=== PATIENT | male | born 1940 | race Caucasian/White ===

== ENCOUNTER 2016-07-16 10:37 | Outpatient (CLI) | END 2016-07-16 10:38 | disposition home or self-care (01) ==

== ENCOUNTER 2016-08-20 14:10 | Outpatient (CLI) | payer MEDICARE, OTHER | END 2016-08-20 14:11 | disposition home or self-care (01) | DX: I48.91 Unspecified atrial fibrillation (principal) ==

== ENCOUNTER 2016-09-29 10:47 | Outpatient (CLI) | payer MEDICARE, OTHER | END 2016-09-29 10:48 | disposition home or self-care (01) | DX: I48.91 Unspecified atrial fibrillation (principal) ==

== ENCOUNTER 2016-11-17 10:27 | Outpatient (CLI) | payer MEDICARE, OTHER | END 2016-11-17 10:28 | disposition home or self-care (01) | DX: I48.91 Unspecified atrial fibrillation (principal) ==

== ENCOUNTER 2016-11-26 10:00 | Outpatient (CLI) | payer MEDICARE, OTHER | END 2016-11-26 10:01 | disposition home or self-care (01) | DX: I48.91 Unspecified atrial fibrillation (principal) ==

== ENCOUNTER 2016-12-30 10:55 | Outpatient (CLI) | payer MEDICARE, OTHER | END 2016-12-30 10:56 | disposition home or self-care (01) | LOC: LAB.F 10:55 | PROVIDERS: ATTEND Family Medicine | DX: I48.91 Unspecified atrial fibrillation (principal) | CPT/HCPCS: 85610 ==

== ENCOUNTER 2017-01-20 08:00 | Outpatient (CLI) | payer MEDICARE, OTHER | END 2017-01-20 08:01 | disposition home or self-care (01) | LOC: LAB.F 08:00 | PROVIDERS: ATTEND Family Medicine | DX: I48.91 Unspecified atrial fibrillation (principal) | CPT/HCPCS: 85610 ==

== ENCOUNTER 2017-02-23 09:51 | Outpatient (CLI) | payer MEDICARE, OTHER | END 2017-02-23 09:52 | disposition home or self-care (01) | LOC: LAB.F 09:51 | PROVIDERS: ATTEND Family Medicine | DX: I48.91 Unspecified atrial fibrillation (principal) | CPT/HCPCS: 85610 ==

== ENCOUNTER 2017-03-30 11:07 | Outpatient (CLI) | payer MEDICARE, OTHER | END 2017-03-30 11:08 | disposition home or self-care (01) | LOC: LAB.F 11:07 | PROVIDERS: ATTEND Family Medicine | DX: I48.91 Unspecified atrial fibrillation (principal) | CPT/HCPCS: 85610 ==

== ENCOUNTER 2017-04-13 10:08 | Outpatient (CLI) | payer MEDICARE, OTHER | END 2017-04-13 10:09 | disposition home or self-care (01) | LOC: LAB.F 10:08 | PROVIDERS: ATTEND Family Medicine | DX: I48.91 Unspecified atrial fibrillation (principal) | CPT/HCPCS: 85610 ==

== ENCOUNTER 2017-06-22 09:59 | Outpatient (CLI) | payer MEDICARE, OTHER | END 2017-06-22 10:00 | disposition home or self-care (01) | LOC: LAB.F 09:59 | PROVIDERS: ATTEND Family Medicine | DX: I48.91 Unspecified atrial fibrillation (principal) | CPT/HCPCS: 85610 ==

== ENCOUNTER 2017-07-27 10:50 | Outpatient (CLI) | payer MEDICARE, OTHER | END 2017-07-27 10:51 | disposition home or self-care (01) | LOC: LAB.F 10:50 | PROVIDERS: ATTEND Family Medicine | DX: I48.91 Unspecified atrial fibrillation (principal) | CPT/HCPCS: 85610 ==

== ENCOUNTER 2017-08-31 09:40 | Outpatient (CLI) | payer MEDICARE, OTHER | END 2017-08-31 09:41 | disposition home or self-care (01) | LOC: LAB.F 09:40 | PROVIDERS: ATTEND Family Medicine | DX: I48.91 Unspecified atrial fibrillation (principal) | CPT/HCPCS: 85610 ==

== ENCOUNTER 2017-10-05 10:34 | Outpatient (CLI) | payer MEDICARE, OTHER | END 2017-10-05 10:35 | disposition home or self-care (01) | LOC: LAB.F 10:34 | PROVIDERS: ATTEND Family Medicine | DX: I48.91 Unspecified atrial fibrillation (principal) | CPT/HCPCS: 85610 ==

== ENCOUNTER 2017-10-09 11:12 | Outpatient (CLI) | payer MEDICARE, OTHER | END 2017-10-09 11:13 | disposition home or self-care (01) | LOC: DI 11:12 | PROVIDERS: ATTEND Family Medicine | DX: I42.9 Cardiomyopathy, unspecified (principal); I48.91 Unspecified atrial fibrillation; Z95.2 Presence of prosthetic heart valve; I07.1 Rheumatic tricuspid insufficiency | CPT/HCPCS: 93306 ==

== ENCOUNTER 2017-11-09 10:33 | Outpatient (CLI) | payer MEDICARE, OTHER | END 2017-11-09 10:34 | disposition home or self-care (01) | LOC: LAB.F 10:33 | PROVIDERS: ATTEND Family Medicine | DX: I48.91 Unspecified atrial fibrillation (principal) | CPT/HCPCS: 85610 ==

== ENCOUNTER 2017-12-14 10:20 | Outpatient (CLI) | payer MEDICARE, OTHER | END 2017-12-14 10:21 | disposition home or self-care (01) | LOC: LAB.F 10:20 | PROVIDERS: ATTEND Family Medicine | DX: I48.91 Unspecified atrial fibrillation (principal) | CPT/HCPCS: 85610 ==

== ENCOUNTER 2017-12-28 09:55 | Outpatient (CLI) | payer MEDICARE, OTHER | END 2017-12-28 09:56 | disposition home or self-care (01) | LOC: LAB.F 09:55 | PROVIDERS: ATTEND Family Medicine | DX: I48.91 Unspecified atrial fibrillation (principal) | CPT/HCPCS: 85610 ==

== ENCOUNTER 2018-01-31 10:10 | Outpatient (CLI) | payer MEDICARE, OTHER | END 2018-01-31 10:11 | disposition home or self-care (01) | LOC: LAB.F 10:10 | PROVIDERS: ATTEND Family Medicine | DX: I48.91 Unspecified atrial fibrillation (principal) | CPT/HCPCS: 85610 ==

== ENCOUNTER 2018-03-08 09:44 | Outpatient (CLI) | payer MEDICARE, OTHER | END 2018-03-08 09:45 | disposition home or self-care (01) | LOC: LAB.F 09:44 | PROVIDERS: ATTEND Family Medicine | DX: I48.91 Unspecified atrial fibrillation (principal) | CPT/HCPCS: 85610 ==

== ENCOUNTER 2018-04-12 10:20 | Outpatient (CLI) | payer MEDICARE, OTHER | END 2018-04-12 10:21 | disposition home or self-care (01) | LOC: LAB.F 10:20 | PROVIDERS: ATTEND Family Medicine | DX: I48.91 Unspecified atrial fibrillation (principal) | CPT/HCPCS: 85610 ==

== ENCOUNTER 2018-05-24 11:14 | Outpatient (CLI) | payer MEDICARE, OTHER | END 2018-05-24 11:15 | disposition home or self-care (01) | LOC: LAB.F 11:14 | PROVIDERS: ATTEND Family Medicine | DX: I48.91 Unspecified atrial fibrillation (principal) | CPT/HCPCS: 85610 ==

== ENCOUNTER 2018-06-14 10:37 | Outpatient (CLI) | payer MEDICARE, OTHER | END 2018-06-14 10:38 | disposition home or self-care (01) | LOC: LAB.F 10:37 | PROVIDERS: ATTEND Family Medicine | DX: I48.91 Unspecified atrial fibrillation (principal) | CPT/HCPCS: 85610 ==

== ENCOUNTER 2018-06-29 09:58 | Outpatient (CLI) | payer MEDICARE, OTHER | END 2018-06-29 09:59 | disposition home or self-care (01) | LOC: LAB.F 09:58 | PROVIDERS: ATTEND Family Medicine | DX: I48.91 Unspecified atrial fibrillation (principal) | CPT/HCPCS: 85610 ==

== ENCOUNTER 2018-07-15 11:03 | Outpatient (CLI) | payer MEDICARE, OTHER | END 2018-07-15 11:04 | disposition home or self-care (01) | LOC: LAB.F 11:03 | PROVIDERS: ATTEND Family Medicine | DX: I48.91 Unspecified atrial fibrillation (principal) | CPT/HCPCS: 85610 ==

== ENCOUNTER 2018-08-17 11:16 | Outpatient (CLI) | payer MEDICARE, OTHER | END 2018-08-17 11:17 | disposition home or self-care (01) | LOC: LAB.F 11:16 | PROVIDERS: ATTEND Family Medicine | DX: I48.91 Unspecified atrial fibrillation (principal) | CPT/HCPCS: 85610 ==

== ENCOUNTER 2018-09-20 10:05 | Outpatient (CLI) | payer MEDICARE, OTHER | END 2018-09-20 10:06 | disposition home or self-care (01) | LOC: LAB.F 10:05 | PROVIDERS: ATTEND Family Medicine | DX: I48.91 Unspecified atrial fibrillation (principal) | CPT/HCPCS: 85610 ==

== ENCOUNTER 2018-10-25 09:58 | Outpatient (CLI) | payer MEDICARE, OTHER | END 2018-10-25 09:59 | disposition home or self-care (01) | LOC: LAB.F 09:58 | PROVIDERS: ATTEND Family Medicine | DX: I48.91 Unspecified atrial fibrillation (principal) | CPT/HCPCS: 85610 ==

== ENCOUNTER 2018-11-29 09:50 | Outpatient (CLI) | payer MEDICARE, OTHER | END 2018-11-29 09:51 | disposition home or self-care (01) | LOC: LAB.F 09:50 | PROVIDERS: ATTEND Family Medicine | DX: I48.91 Unspecified atrial fibrillation (principal) | CPT/HCPCS: 85610 ==

== ENCOUNTER 2019-01-03 10:33 | Outpatient (CLI) | payer MEDICARE, OTHER | END 2019-01-03 10:34 | disposition home or self-care (01) | LOC: LAB.F 10:33 | PROVIDERS: ATTEND Family Medicine | DX: I48.91 Unspecified atrial fibrillation (principal) | CPT/HCPCS: 85610 ==

== ENCOUNTER 2019-01-31 10:01 | Outpatient (CLI) | payer MEDICARE, OTHER | END 2019-01-31 10:02 | disposition home or self-care (01) | LOC: LAB.S 10:01 | PROVIDERS: ATTEND Family Medicine | DX: I48.91 Unspecified atrial fibrillation (principal) | CPT/HCPCS: 85610 ==

== ENCOUNTER 2019-03-07 09:53 | Outpatient (CLI) | payer MEDICARE, OTHER | END 2019-03-07 09:54 | disposition home or self-care (01) | LOC: LAB.S 09:53 | PROVIDERS: ATTEND Family Medicine | DX: I48.91 Unspecified atrial fibrillation (principal) | CPT/HCPCS: 85610 ==

== ENCOUNTER 2019-04-04 10:46 | Outpatient (CLI) | payer MEDICARE, OTHER | END 2019-04-04 10:47 | disposition home or self-care (01) | LOC: LAB.S 10:46 | PROVIDERS: ATTEND Family Medicine | DX: I48.91 Unspecified atrial fibrillation (principal) | CPT/HCPCS: 85610 ==

== ENCOUNTER 2019-04-14 17:01 | Emergency (ER) | payer MEDICARE, OTHER ==
[2019-04-14] MEDS ORDERED: LIDOCAINE 2%-EPI 1:100000 20 ML MDV SUBQ STA (17:15)
[2019-04-14] MEDS ORDERED: TRANEXAMIC ACID 1,000 MG/10 ML VIAL NAS STA (17:15)
--- NOTE | 2019-04-14 17:17 | ED Physician Documentation ---
PD HPI HEENT - Stated complaint Stated Complaint: MOUTH BLEEDING/POST OP - Chief complaint Chief Complaint: Heent - History obtained from History obtained from: Patient - History of Present Illness Timing - onset: Other (He is 2 days out from some dental extractions and implants. He is chronically anticoagulated and stopped his warfarin 5 days prior to the surgery and was on a Lovenox bridge. He has subsequently restarted his warfarin and is still on Lovenox and is having a lot of bleeding today) Review of Systems Constitutional: reports: Reviewed and negative Ears: reports: Reviewed and negative Nose: reports: Reviewed and negative Throat: reports: Reviewed and negative PD PAST MEDICAL HISTORY - Past Medical History Cardiovascular: Hypertension, High cholesterol : Benign prostate hypertrophy - Past Surgical History Past Surgical History: Yes General: Cholecystectomy Cardiovascular: Valve replacement - Present Medications Home Medications: Ambulatory Orders Medication Instructions Recorded Confirmed Aspirin [Roxana Chewable] 81 mg PO DAILY 04/20/14 04/20/14 Digoxin [Digox] 250 mcg PO DAILY 04/20/14 04/20/14 Finasteride 5 mg PO DAILY 04/20/14 04/20/14 Metoprolol Succinate 100 mg PO BID 04/20/14 04/20/14 Simvastatin [Zocor] 40 mg PO DAILY 04/20/14 04/20/14 Tamsulosin [Flomax] 0.4 mg PO DAILY 04/20/14 04/20/14 Warfarin [Coumadin] 5 mg PO DAILY 04/20/14 04/20/14 - Allergies Allergies/Adverse Reactions: Allergies Allergy/AdvReac Type Severity Reaction Status Date / Time No Known Drug Allergies Allergy Verified 04/14/19 17:04 - Social History Does the pt smoke?: Yes Smoking Status: Current every day smoker Does the pt drink ETOH?: No Does the pt have substance abuse?: No - Immunizations Immunizations are current?: Yes - POLST Patient has POLST: No PD ED PE NORMAL - Vitals Vital signs reviewed: Yes - General General: Alert and oriented X 3 - HEENT HEENT: Other (Fresh clot on the gumline of the right mandible) - Neck Neck: Supple, no meningeal sign, No bony TTP - Neuro Neuro: Alert and oriented X 3, Normal speech - Psych Psych: Normal mood, Normal affect Results - Vitals Vitals: Vital Signs - 24 hr 04/14/19 17:04 Temperature 36.5 C Heart Rate 76 Respiratory 16 Rate Blood Pressure 114/57 L O2 Saturation 97 Oxygen O2 Source Room air - Labs Labs: Laboratory Tests 04/14/19 04/14/19 17:34 17:34 Hgb 15.5 Hct 46.5 PT 13.6 H INR 1.2 PD MEDICAL DECISION MAKING - ED course ED course: 79-year-old gentleman fully anticoagulated with Lovenox on a bridge presents with post implant dental bleeding. Using combination of local injection with lidocaine and epinephrine and topical tranexamic acid the bleeding stopped. Departure - Departure Disposition: 01 Home, Self Care Clinical Impression: Warfarin anticoagulation, Hemorrhagic complications of dental implant placement Condition: Good Record reviewed to determine appropriate education?: Yes Comments: Return for recurring bleeding. Call your dentist on Wednesday. Let him or her know that we stopped the bleeding with a combination of lidocaine with epinephrine and tranexamic acid. Recheck your INR on Wednesday.
[2019-04-14 17:43] LABS: HGB - HEMOGLOBIN 15.5 g/dL (14.0-18.0)
[2019-04-14 17:48] LABS: INR 1.2 (0.8-1.2); PT - PROTHROMBIN TIME 13.6 secs (9.9-12.6)
[2019-04-14 18:26] VITALS: BP 134/78
== END 2019-04-14 18:20 | disposition home or self-care (01) ==
LOC: ED 17:01
DX: K91.840 Postprocedural hemorrhage of a digestive system organ or structure following a digestive system procedure (principal); I10 Essential (primary) hypertension; F17.200 Nicotine dependence, unspecified, uncomplicated; Z79.01 Long term (current) use of anticoagulants
CPT/HCPCS: 36415; 85014; 85018; 85610; 99283

== ENCOUNTER 2019-04-16 14:21 | Emergency (ER) | payer MEDICARE, OTHER ==
[2019-04-16 15:09] LABS: BASOPHILS % (AUTO) 0.3 %; EOSINOPHILS % (AUTO) 0.9 %; HGB - HEMOGLOBIN 15.3 g/dL (14.0-18.0); LYMPHOCYTES # (AUTO) 1.5 10^3/uL (1.5-3.5); LYMPHOCYTES % (AUTO) 22.2 %; MEAN CORPUSCULAR HEMOGLOBIN 31.1 pg (27.0-31.0); MEAN CORPUSCULAR HGB CONC 32.6 g/dL (32.0-36.0); MEAN CORPUSCULAR VOLUME 95.3 fL (80.0-94.0); MEAN PLATELET VOLUME 9.1 fL (7.4-11.4); MONOCYTES # (AUTO) 1.1 10^3/uL (0.0-1.0); MONOCYTES % (AUTO) 15.6 %; NEUTROPHILS # (AUTO) 4.1 10^3/uL (1.5-6.6); NEUTROPHILS % (AUTO) 60.6 %; PLT - PLATELET COUNT 224 10^3/uL (130-450); RED BLOOD COUNT 4.92 10^6/uL (4.70-6.10); RED CELL DISTRIBUTION WIDTH 13.3 % (12.0-15.0); WHITE BLOOD COUNT 6.8 x10^3/uL (4.8-10.8)
[2019-04-16 15:10] LABS: EOSINOPHILS # (AUTO) 0.1 10^3/uL (0.0-0.7)
[2019-04-16 15:15] LABS: INR 1.5 (0.8-1.2); PT - PROTHROMBIN TIME 16.6 secs (9.9-12.6)
[2019-04-16] MEDS ORDERED: TRANEXAMIC ACID 1,000 MG/10 ML VIAL NAS STA (16:00)
--- NOTE | 2019-04-16 16:05 | ED Physician Documentation ---
History of Present Illness - Stated complaint Stated Complaint: MOUTH BLEED/POST OP - Chief complaint Chief Complaint: Heent - History obtained from History obtained from: Patient - History of Present Illness Pain level max: 0 Pain level now: 0 Improved by: nothing Worsened by: nothing - Additonal information Additional information: s/p dental extraction 5 days ago. On warfarin for an artificial heart valve. On lovenox currently as well. States recurrent bleeding today. Seen on wednesday for same. stopped with TXA and lido with epi. Review of Systems Ten Systems: 10 systems reviewed and negative Constitutional: denies: Fever, Chills Respiratory: denies: Cough GI: denies: Vomiting, Diarrhea Musculoskeletal: denies: Neck pain, Back pain Neurologic: denies: Focal weakness, Numbness, Headache PD PAST MEDICAL HISTORY - Past Medical History Cardiovascular: Hypertension, High cholesterol : Benign prostate hypertrophy - Past Surgical History Past Surgical History: Yes General: Cholecystectomy Cardiovascular: Valve replacement - Present Medications Home Medications: Ambulatory Orders Medication Instructions Recorded Confirmed Aspirin [Roxana Chewable] 81 mg PO DAILY 04/20/14 04/20/14 Digoxin [Digox] 250 mcg PO DAILY 04/20/14 04/20/14 Finasteride 5 mg PO DAILY 04/20/14 04/20/14 Metoprolol Succinate 100 mg PO BID 04/20/14 04/20/14 Simvastatin [Zocor] 40 mg PO DAILY 04/20/14 04/20/14 Tamsulosin [Flomax] 0.4 mg PO DAILY 04/20/14 04/20/14 Warfarin [Coumadin] 5 mg PO DAILY 04/20/14 04/20/14 - Allergies Allergies/Adverse Reactions: Allergies Allergy/AdvReac Type Severity Reaction Status Date / Time No Known Drug Allergies Allergy Verified 04/14/19 17:04 - Social History Does the pt smoke?: Yes Smoking Status: Current every day smoker Does the pt drink ETOH?: No Does the pt have substance abuse?: No - Immunizations Immunizations are current?: Yes - POLST Patient has POLST: No PD ED PE NORMAL - Vitals Vital signs reviewed: Yes - General General: Alert and oriented X 3, No acute distress - HEENT HEENT: Moist mucous membranes, Other (bleeding from the R lower gums.) - Neck Neck: Supple, no meningeal sign - Cardiac Cardiac: RRR - Respiratory Respiratory: No respiratory distress, Clear bilaterally - Derm Derm: Warm and dry - Neuro Neuro: Alert and oriented X 3 Results - Vitals Vitals: Vital Signs - 24 hr 04/16/19 04/16/19 14:35 17:23 Temperature 36.6 C Heart Rate 70 80 Respiratory 16 18 Rate Blood Pressure 121/56 L 110/63 O2 Saturation 97 96 Oxygen O2 Source Room air - Labs Labs: Laboratory Tests 04/16/19 04/16/19 15:00 15:00 WBC 6.8 RBC 4.92 Hgb 15.3 Hct 46.9 MCV 95.3 H MCH 31.1 H MCHC 32.6 RDW 13.3 Plt Count 224 MPV 9.1 Neut # (Auto) 4.1 Lymph # (Auto) 1.5 Bond # (Auto) 1.1 H Eos # (Auto) 0.1 Baso # (Auto) 0.0 Absolute Nucleated RBC 0.00 Nucleated RBC % 0.0 PT 16.6 H INR 1.5 H PD MEDICAL DECISION MAKING - ED course Complexity details: reviewed old records, reviewed results, re-evaluated patient, considered differential, d/w patient, d/w family ED course: Bleeding resolved with topical tranexamic acid. No significant lab abnormalities. He will follow-up with his dentist tomorrow. No further bleeding here. Patient and family counseled regarding signs and symptoms for which I believe and urgent re-evaluation would be necessary. Patient with good understanding of and agreement to plan and is comfortable going home at this time This document was made in part using voice recognition software. While efforts are made to proofread this document, sound alike and grammatical errors may occur. Departure - Departure Disposition: 01 Home, Self Care Clinical Impression: Hemorrhagic complications of dental implant placement, Warfarin anticoagulation Condition: Good Instructions: ED Wound Check Post Op Bleeding Follow-Up: Cornelio Hector MD [Primary Care Provider] - Estevan Hernández DDS [Physician No Access] - Tomorrow Comments: Follow up with your dentist tomorrow. Return if you worsen. Discharge Date/Time: 04/16/19 17:26
[2019-04-16 17:24] VITALS: BP 110/63
== END 2019-04-16 17:26 | disposition home or self-care (01) ==
LOC: ED 14:21
DX: K91.840 Postprocedural hemorrhage of a digestive system organ or structure following a digestive system procedure (principal); I10 Essential (primary) hypertension; F17.200 Nicotine dependence, unspecified, uncomplicated
CPT/HCPCS: 36415; 85025; 85610; 99283; 99284

== ENCOUNTER 2019-04-18 13:32 | Outpatient (CLI) | payer MEDICARE, OTHER | END 2019-04-18 13:33 | disposition home or self-care (01) | LOC: LAB.S 13:32 | PROVIDERS: ATTEND Family Medicine | DX: I48.91 Unspecified atrial fibrillation (principal) | CPT/HCPCS: 85610 ==

== ENCOUNTER 2019-04-25 08:00 | Outpatient (CLI) | payer MEDICARE, OTHER | END 2019-04-25 23:59 | disposition home or self-care (01) | LOC: LAB.WCP 08:00 | PROVIDERS: ATTEND Physician Assistant Medical | DX: I48.91 Unspecified atrial fibrillation (principal); Z95.2 Presence of prosthetic heart valve; Z79.01 Long term (current) use of anticoagulants ==

== ENCOUNTER 2019-05-02 08:00 | Outpatient (CLI) | payer MEDICARE, OTHER | END 2019-05-02 23:59 | disposition home or self-care (01) | LOC: LAB.WCP 08:00 | PROVIDERS: ATTEND Family Medicine | DX: I48.91 Unspecified atrial fibrillation (principal); Z95.2 Presence of prosthetic heart valve; Z79.01 Long term (current) use of anticoagulants ==

== ENCOUNTER 2019-05-16 10:22 | Outpatient (CLI) | payer MEDICARE, OTHER | END 2019-05-16 10:23 | disposition home or self-care (01) | LOC: LAB.S 10:22 | PROVIDERS: ATTEND Family Medicine | DX: I48.91 Unspecified atrial fibrillation (principal) | CPT/HCPCS: 85610 ==

== ENCOUNTER 2019-06-20 11:20 | Outpatient (CLI) | payer MEDICARE, OTHER | END 2019-06-20 11:21 | disposition home or self-care (01) | LOC: LAB.S 11:20 | PROVIDERS: ATTEND Family Medicine | DX: I48.91 Unspecified atrial fibrillation (principal) | CPT/HCPCS: 85610 ==

== ENCOUNTER 2019-07-18 08:00 | Outpatient (CLI) | payer MEDICARE, OTHER | END 2019-07-18 23:59 | disposition home or self-care (01) | LOC: LAB.S 08:00 | PROVIDERS: ATTEND Family Medicine | DX: I48.91 Unspecified atrial fibrillation (principal) | CPT/HCPCS: 85610 ==

== ENCOUNTER 2019-07-27 08:00 | Outpatient (CLI) | payer MEDICARE, OTHER | END 2019-07-27 23:59 | disposition home or self-care (01) | LOC: LAB.WCP 08:00 | PROVIDERS: ATTEND Family Medicine | DX: I48.91 Unspecified atrial fibrillation (principal); Z95.2 Presence of prosthetic heart valve; Z79.01 Long term (current) use of anticoagulants ==

== ENCOUNTER 2019-08-04 10:46 | Outpatient (CLI) | payer MEDICARE, OTHER | END 2019-08-04 10:47 | disposition home or self-care (01) | LOC: LAB.S 10:46 | PROVIDERS: ATTEND Family Medicine | DX: I48.91 Unspecified atrial fibrillation (principal) | CPT/HCPCS: 85610 ==

== ENCOUNTER 2019-08-18 08:00 | Outpatient (CLI) | payer MEDICARE, OTHER | END 2019-08-18 23:59 | disposition home or self-care (01) | LOC: LAB.WCP 08:00 | PROVIDERS: ATTEND Family Medicine | DX: Z95.2 Presence of prosthetic heart valve (principal); Z79.01 Long term (current) use of anticoagulants ==

== ENCOUNTER 2019-08-18 08:00 | Outpatient (CLI) | payer MEDICARE, OTHER ==
[2019-08-18 19:05] LABS: BASOPHILS % (AUTO) 0.6 %; EOSINOPHILS # (AUTO) 0.1 10^3/uL (0.0-0.7); EOSINOPHILS % (AUTO) 1.3 %; HGB - HEMOGLOBIN 15.3 g/dL (14.0-18.0); LYMPHOCYTES # (AUTO) 1.6 10^3/uL (1.5-3.5); LYMPHOCYTES % (AUTO) 23.3 %; MEAN CORPUSCULAR HEMOGLOBIN 29.8 pg (27.0-31.0); MEAN CORPUSCULAR VOLUME 96.1 fL (80.0-94.0); MEAN PLATELET VOLUME 10.2 fL (7.4-11.4); MONOCYTES # (AUTO) 1.1 10^3/uL (0.0-1.0); MONOCYTES % (AUTO) 15.4 %; NEUTROPHILS # (AUTO) 4.1 10^3/uL (1.5-6.6); PLT - PLATELET COUNT 196 10^3/uL (130-450); RED BLOOD COUNT 5.14 10^6/uL (4.70-6.10); RED CELL DISTRIBUTION WIDTH 13.6 % (12.0-15.0)
[2019-08-18 19:32] LABS: ALBUMIN 4.3 g/dL (3.2-5.5); ALBUMIN/GLOBULIN RATIO 1.5 (1.0-2.2); ALKALINE PHOSPHATASE 32 IU/L (42-121); ALT ALANINE AMINOTRANSFERASE 17 IU/L (10-60); AST ASPARTATE AMINOTRANSFERASE 27 IU/L (10-42); BUN - BLOOD UREA NITROGEN 13 mg/dL (6-20); CALCIUM 8.7 mg/dL (8.5-10.3); CARBON DIOXIDE - CO2 27 mmol/L (21-32); CHLORIDE 104 mmol/L (101-111); CREATININE 0.7 mg/dL (0.6-1.2); DIGOXIN 0.3 ng/mL; GFR - MDRD 109 (>89); GLUCOSE 85 mg/dL (70-100); SODIUM 140 mmol/L (135-145); TOTAL PROTEIN 7.2 g/dL (6.7-8.2)
== END 2019-08-18 23:59 | disposition home or self-care (01) ==
LOC: LAB.WCP 08:00
PROVIDERS: ATTEND Family Medicine
DX: I48.91 Unspecified atrial fibrillation (principal); I42.9 Cardiomyopathy, unspecified; E78.5 Hyperlipidemia, unspecified; J84.9 Interstitial pulmonary disease, unspecified; Z95.2 Presence of prosthetic heart valve; Z79.01 Long term (current) use of anticoagulants
CPT/HCPCS: 36415; 80048; 80053; 80162; 84443; 85025

== ENCOUNTER 2019-09-20 10:05 | Outpatient (CLI) | payer MEDICARE, OTHER | END 2019-09-20 10:06 | disposition home or self-care (01) | LOC: LAB.S 10:05 | PROVIDERS: ATTEND Family Medicine | DX: I48.91 Unspecified atrial fibrillation (principal) | CPT/HCPCS: 85610 ==

== ENCOUNTER 2019-10-31 08:00 | Outpatient (CLI) | payer MEDICARE, OTHER | END 2019-10-31 23:59 | disposition home or self-care (01) | LOC: LAB.WCP 08:00 | PROVIDERS: ATTEND Family Medicine | DX: I48.91 Unspecified atrial fibrillation (principal); Z79.01 Long term (current) use of anticoagulants; Z95.2 Presence of prosthetic heart valve ==

== ENCOUNTER 2019-11-28 08:00 | Outpatient (CLI) | payer MEDICARE, OTHER | END 2019-11-28 23:59 | disposition home or self-care (01) | LOC: LAB.WCP 08:00 | PROVIDERS: ATTEND Family Medicine | DX: I48.91 Unspecified atrial fibrillation (principal); Z95.2 Presence of prosthetic heart valve; Z79.01 Long term (current) use of anticoagulants ==

== ENCOUNTER 2019-12-26 08:00 | Outpatient (CLI) | payer MEDICARE, OTHER | END 2019-12-26 23:59 | disposition home or self-care (01) | LOC: LAB.WCP 08:00 | PROVIDERS: ATTEND Family Medicine | DX: I34.9 Nonrheumatic mitral valve disorder, unspecified (principal); Z79.01 Long term (current) use of anticoagulants; I48.91 Unspecified atrial fibrillation ==

== ENCOUNTER 2020-01-30 13:29 | Outpatient (CLI) | payer MEDICARE, OTHER | END 2020-01-30 13:30 | disposition home or self-care (01) | LOC: LAB.S 13:29 | PROVIDERS: ATTEND Family Medicine | DX: I48.91 Unspecified atrial fibrillation (principal) | CPT/HCPCS: 85610 ==

== ENCOUNTER 2020-02-20 10:37 | Outpatient (CLI) | payer MEDICARE, OTHER | END 2020-02-20 10:38 | disposition home or self-care (01) | LOC: LAB.S 10:37 | PROVIDERS: ATTEND Family Medicine | DX: I48.91 Unspecified atrial fibrillation (principal) | CPT/HCPCS: 85610 ==

== ENCOUNTER 2020-04-03 09:42 | Outpatient (CLI) | payer MEDICARE, OTHER | END 2020-04-03 09:43 | disposition home or self-care (01) | LOC: LAB.S 09:42 | PROVIDERS: ATTEND Family Medicine | DX: I48.91 Unspecified atrial fibrillation (principal) | CPT/HCPCS: 85610 ==

== ENCOUNTER 2020-04-17 11:02 | Outpatient (CLI) | payer MEDICARE, OTHER | END 2020-04-17 11:03 | disposition home or self-care (01) | LOC: LAB.S 11:02 | PROVIDERS: ATTEND Family Medicine | DX: I48.91 Unspecified atrial fibrillation (principal) | CPT/HCPCS: 85610 ==

== ENCOUNTER 2020-04-26 08:00 | Outpatient (CLI) | payer MEDICARE, OTHER ==
[2020-04-26 11:22] LABS: BASOPHILS % (AUTO) 0.5 %; EOSINOPHILS # (AUTO) 0.1 10^3/uL (0.0-0.7); EOSINOPHILS % (AUTO) 1.6 %; HGB - HEMOGLOBIN 15.5 g/dL (14.0-18.0); LYMPHOCYTES # (AUTO) 1.8 10^3/uL (1.5-3.5); LYMPHOCYTES % (AUTO) 24.1 %; MEAN CORPUSCULAR HEMOGLOBIN 31.7 pg (27.0-31.0); MEAN CORPUSCULAR VOLUME 99.2 fL (80.0-94.0); MEAN PLATELET VOLUME 9.9 fL (7.4-11.4); MONOCYTES # (AUTO) 1.1 10^3/uL (0.0-1.0); NEUTROPHILS # (AUTO) 4.5 10^3/uL (1.5-6.6); NEUTROPHILS % (AUTO) 59.3 %; PLT - PLATELET COUNT 201 10^3/uL (130-450); RED BLOOD COUNT 4.89 10^6/uL (4.70-6.10); RED CELL DISTRIBUTION WIDTH 13.4 % (12.0-15.0); WHITE BLOOD COUNT 7.6 x10^3/uL (4.8-10.8)
[2020-04-26 12:15] LABS: ALBUMIN 4.3 g/dL (3.2-5.5); ALBUMIN/GLOBULIN RATIO 1.5 (1.0-2.2); ALKALINE PHOSPHATASE 34 IU/L (42-121); ALT ALANINE AMINOTRANSFERASE 21 IU/L (10-60); AST ASPARTATE AMINOTRANSFERASE 29 IU/L (10-42); BILIRUBIN,TOTAL 1.2 mg/dL (0.2-1.0); BUN - BLOOD UREA NITROGEN 13 mg/dL (6-20); CALCIUM 9.6 mg/dL (8.5-10.3); CARBON DIOXIDE - CO2 30 mmol/L (21-32); CHLORIDE 101 mmol/L (101-111); CHOL/HDL RATIO 2.8 (<5.0); CHOLESTEROL 120 mg/dL; CREATININE 0.7 mg/dL (0.6-1.2); GLUCOSE 105 mg/dL (70-100); HDL CHOLESTEROL 43 mg/dL; LDL CHOLESTEROL,CALCULATED 53 mg/dL; LDL/HDL RATIO 1.2 (<3.6); SODIUM 141 mmol/L (135-145); TOTAL PROTEIN 7.2 g/dL (6.7-8.2); VLDL CHOLESTEROL 24 mg/dL
== END 2020-04-26 08:01 | disposition home or self-care (01) ==
LOC: LAB.WCP 08:00
PROVIDERS: ATTEND Family Medicine
DX: E78.5 Hyperlipidemia, unspecified (principal); I42.9 Cardiomyopathy, unspecified; I34.9 Nonrheumatic mitral valve disorder, unspecified; I48.91 Unspecified atrial fibrillation
CPT/HCPCS: 36415; 80053; 80061; 83721; 84443; 85025

== ENCOUNTER 2020-05-08 09:26 | Outpatient (CLI) | payer MEDICARE, OTHER | END 2020-05-08 09:27 | disposition home or self-care (01) | LOC: LAB.S 09:26 | PROVIDERS: ATTEND Family Medicine | DX: I48.91 Unspecified atrial fibrillation (principal) | CPT/HCPCS: 85610 ==

== ENCOUNTER 2020-05-10 08:00 | Outpatient (CLI) | payer MEDICARE, OTHER | END 2020-05-10 23:59 | disposition home or self-care (01) | LOC: LAB.WCP 08:00 | PROVIDERS: ATTEND Family Medicine | DX: Z79.01 Long term (current) use of anticoagulants (principal) ==

== ENCOUNTER 2020-06-12 09:55 | Outpatient (CLI) | payer MEDICARE, OTHER | END 2020-06-12 09:56 | disposition home or self-care (01) | LOC: LAB.S 09:55 | PROVIDERS: ATTEND Family Medicine | DX: Z79.01 Long term (current) use of anticoagulants (principal) | CPT/HCPCS: 85610 ==

== ENCOUNTER 2020-06-24 10:51 | Outpatient (CLI) | payer MEDICARE, OTHER | END 2020-06-24 10:52 | disposition home or self-care (01) | LOC: LAB.S 10:51 | PROVIDERS: ATTEND Family Medicine | DX: Z79.01 Long term (current) use of anticoagulants (principal) | CPT/HCPCS: 85610 ==

== ENCOUNTER 2020-07-08 10:52 | Outpatient (CLI) | payer MEDICARE, OTHER | END 2020-07-08 10:53 | disposition home or self-care (01) | LOC: LAB.S 10:52 | PROVIDERS: ATTEND Family Medicine | DX: Z79.01 Long term (current) use of anticoagulants (principal) | CPT/HCPCS: 85610 ==

== ENCOUNTER 2020-08-06 08:00 | Outpatient (CLI) | payer MEDICARE, OTHER | END 2020-08-06 23:59 | disposition home or self-care (01) | LOC: LAB.WCP 08:00 | PROVIDERS: ATTEND Internal Medicine | DX: Z79.01 Long term (current) use of anticoagulants (principal) ==

== ENCOUNTER 2020-08-23 09:05 | Outpatient (CLI) | payer MEDICARE, OTHER | END 2020-08-23 09:06 | disposition home or self-care (01) | LOC: DI 09:05 | PROVIDERS: ATTEND Family Medicine | DX: I35.1 Nonrheumatic aortic (valve) insufficiency (principal); I48.91 Unspecified atrial fibrillation; I87.8 Other specified disorders of veins; I07.1 Rheumatic tricuspid insufficiency | CPT/HCPCS: 93306 ==

== ENCOUNTER 2020-08-27 09:48 | Outpatient (CLI) | payer MEDICARE, OTHER | END 2020-08-27 09:49 | disposition home or self-care (01) | LOC: LAB.S 09:48 | PROVIDERS: ATTEND Family Medicine | DX: Z79.01 Long term (current) use of anticoagulants (principal) | CPT/HCPCS: 85610 ==

== ENCOUNTER 2020-10-01 10:27 | Outpatient (CLI) | payer MEDICARE, OTHER | END 2020-10-01 10:28 | disposition home or self-care (01) | LOC: LAB.S 10:27 | PROVIDERS: ATTEND Family Medicine | DX: Z79.01 Long term (current) use of anticoagulants (principal) | CPT/HCPCS: 85610 ==

== ENCOUNTER 2020-10-29 09:47 | Outpatient (CLI) | payer MEDICARE, OTHER | END 2020-10-29 09:48 | disposition home or self-care (01) | LOC: LAB.S 09:47 | PROVIDERS: ATTEND Family Medicine | DX: Z79.01 Long term (current) use of anticoagulants (principal) | CPT/HCPCS: 85610 ==

== ENCOUNTER 2020-11-28 10:39 | Outpatient (CLI) | payer MEDICARE, OTHER | END 2020-11-28 10:40 | disposition home or self-care (01) | LOC: LAB.S 10:39 | PROVIDERS: ATTEND Family Medicine | DX: Z79.01 Long term (current) use of anticoagulants (principal) | CPT/HCPCS: 36416; 85610 ==

== ENCOUNTER 2021-01-07 10:43 | Outpatient (CLI) | payer MEDICARE, OTHER | END 2021-01-07 10:44 | disposition home or self-care (01) | LOC: LAB.S 10:43 | PROVIDERS: ATTEND Family Medicine | DX: Z79.01 Long term (current) use of anticoagulants (principal) | CPT/HCPCS: 36416; 85610 ==

== ENCOUNTER 2021-02-04 09:50 | Outpatient (CLI) | payer MEDICARE, OTHER | END 2021-02-04 09:51 | disposition home or self-care (01) | LOC: LAB.S 09:50 | PROVIDERS: ATTEND Family Medicine | DX: Z79.01 Long term (current) use of anticoagulants (principal) | CPT/HCPCS: 36416; 85610 ==

== ENCOUNTER 2021-02-18 08:00 | Outpatient (CLI) | payer MEDICARE, OTHER ==
[2021-02-18 11:31] LABS: INR 2.6 (0.8-1.2); PT - PROTHROMBIN TIME 27.7 secs (9.9-12.6)
[2021-02-18 12:12] LABS: BASOPHILS % (AUTO) 0.6 %; EOSINOPHILS # (AUTO) 0.1 10^3/uL (0.0-0.7); EOSINOPHILS % (AUTO) 2.1 %; HCT - HEMATOCRIT 47.7 % (42.0-52.0); HGB - HEMOGLOBIN 15.5 g/dL (14.0-18.0); LYMPHOCYTES # (AUTO) 1.4 10^3/uL (1.5-3.5); LYMPHOCYTES % (AUTO) 22.2 %; MEAN CORPUSCULAR HEMOGLOBIN 31.7 pg (27.0-31.0); MEAN CORPUSCULAR HGB CONC 32.5 g/dL (32.0-36.0); MEAN CORPUSCULAR VOLUME 97.5 fL (80.0-94.0); MEAN PLATELET VOLUME 9.8 fL (7.4-11.4); MONOCYTES % (AUTO) 16.4 %; NEUTROPHILS # (AUTO) 3.6 10^3/uL (1.5-6.6); NEUTROPHILS % (AUTO) 58.1 %; PLT - PLATELET COUNT 210 10^3/uL (130-450); RED BLOOD COUNT 4.89 10^6/uL (4.70-6.10); RED CELL DISTRIBUTION WIDTH 13.7 % (12.0-15.0); WHITE BLOOD COUNT 6.2 x10^3/uL (4.8-10.8)
[2021-02-18 12:46] LABS: ALBUMIN 4.4 g/dL (3.2-5.5); ALBUMIN/GLOBULIN RATIO 1.5 (1.0-2.2); ALKALINE PHOSPHATASE 35 IU/L (42-121); ALT ALANINE AMINOTRANSFERASE 20 IU/L (10-60); AST ASPARTATE AMINOTRANSFERASE 27 IU/L (10-42); BUN - BLOOD UREA NITROGEN 13 mg/dL (6-20); CALCIUM 9.3 mg/dL (8.5-10.3); CARBON DIOXIDE - CO2 28 mmol/L (21-32); CHLORIDE 103 mmol/L (101-111); CHOL/HDL RATIO 2.9 (<5.0); CHOLESTEROL 134 mg/dL; CREATININE 0.7 mg/dL (0.6-1.2); DIGOXIN 0.4 ng/mL; GFR - MDRD 108 (>89); GLUCOSE 101 mg/dL (70-100); HDL CHOLESTEROL 47 mg/dL; LDL CHOLESTEROL,CALCULATED 69 mg/dL; LDL/HDL RATIO 1.5 (<3.6); POTASSIUM 4.3 mmol/L (3.5-5.0); SODIUM 139 mmol/L (135-145); TOTAL PROTEIN 7.4 g/dL (6.7-8.2); TRIGLYCERIDES 90 mg/dL; VLDL CHOLESTEROL 18 mg/dL
[2021-02-18 12:51] LABS: THYROID STIMULATING HORMONE 1.52 uIU/mL (0.34-5.60)
== END 2021-02-18 23:59 | disposition home or self-care (01) ==
LOC: LAB.WCP 08:00
PROVIDERS: ATTEND Internal Medicine
DX: I42.9 Cardiomyopathy, unspecified (principal); Z79.899 Other long term (current) drug therapy; I34.9 Nonrheumatic mitral valve disorder, unspecified; I48.91 Unspecified atrial fibrillation; Z95.2 Presence of prosthetic heart valve; Z79.01 Long term (current) use of anticoagulants; E78.5 Hyperlipidemia, unspecified; E78.1 Pure hyperglyceridemia; N40.0 Benign prostatic hyperplasia without lower urinary tract symptoms
CPT/HCPCS: 36415; 80053; 80061; 80162; 83721; 84153; 84443; 85025; 85610

== ENCOUNTER 2021-03-25 10:49 | Outpatient (CLI) | payer MEDICARE, OTHER | END 2021-03-25 10:50 | disposition home or self-care (01) | LOC: LAB.S 10:49 | PROVIDERS: ATTEND Family Medicine | DX: Z79.01 Long term (current) use of anticoagulants (principal) | CPT/HCPCS: 36416; 85610 ==

== ENCOUNTER 2021-05-01 10:02 | Outpatient (CLI) | payer MEDICARE, OTHER | END 2021-05-01 10:03 | disposition home or self-care (01) | LOC: LAB.S 10:02 | PROVIDERS: ATTEND Family Medicine | DX: Z79.01 Long term (current) use of anticoagulants (principal) | CPT/HCPCS: 36416; 85610 ==

== ENCOUNTER 2021-05-29 09:40 | Outpatient (CLI) | payer MEDICARE, OTHER | END 2021-05-29 09:41 | disposition home or self-care (01) | LOC: LAB.S 09:40 | PROVIDERS: ATTEND Family Medicine | DX: Z79.01 Long term (current) use of anticoagulants (principal) | CPT/HCPCS: 36416; 85610 ==

== ENCOUNTER 2021-06-22 09:46 | Emergency (ER) | payer MEDICARE, OTHER ==
--- NOTE | 2021-06-22 10:23 | XRAY Report ---
PROCEDURE: Ankle 3 View RT INDICATIONS: Trauma TECHNIQUE: 3 views of the ankle were acquired. COMPARISON: None FINDINGS: Bones: No fractures or dislocations. Ankle mortise is normally aligned. No suspicious bony lesions . Soft tissues: No tibiotalar joint effusion. Achilles tendon appears normal. IMPRESSION: No acute fracture. No osseous lesion. If symptoms and/or clinical suspicion for patholog y continue, further assessment with repeat plain films, or advanced imaging (e.g., CT, MRI, or bone s can) is recommended for further assessment. Reviewed by: Zahida Johnston MD on 06/22/2021 9:21 AM [facility] Approved by: Zahida Johnston MD on 06/22/2021 9:21 AM [facility] Station ID: [id number]
--- NOTE | 2021-06-22 10:23 | XRAY Report ---
PROCEDURE: Foot 3 View RT INDICATIONS: Trauma TECHNIQUE: 3 views of the foot were acquired. COMPARISON: None FINDINGS: Bones: No fractures or dislocations. No suspicious bony lesions. Soft tissues: No tibiotalar joint effusion. Achilles tendon appears normal. IMPRESSION: No acute fracture. No osseous lesion. If symptoms and/or clinical suspicion for pathology continue, f urther assessment with repeat plain films, or advanced imaging (e.g., CT, MRI, or bone scan) is recom mended for further assessment. Reviewed by: Zahida Johnston MD on 06/22/2021 9:22 AM [facility] Approved by: Zahida Johnston MD on 06/22/2021 9:22 AM [facility] Station ID: [id number]
--- NOTE | 2021-06-22 11:06 | ED Physician Documentation ---
PD HPI LOWER EXT INJURY - Stated complaint Stated Complaint: R FOOT SWOLLEN - Chief complaint Chief Complaint: Ext Problem - History obtained from History obtained from: Patient - History of Present Illness PD HPI LOW EXT INJURY LOCATION: Right, Foot Type of injury: Blunt / blow (he states he struck foot on furniture when walking at home last night, and it has swelled more into this morning and is painful.) Where injury occurred: Home Timing - onset: Last night Worsened by: Moving, Palpating Associated symptoms: Swelling, Discolored. No: Weakness, Numbness Contributing factors: Anticoagulated Review of Systems Skin: denies: Abrasion (s), Laceration (s) Neurologic: denies: Focal weakness, Numbness PD PAST MEDICAL HISTORY - Past Medical History Cardiovascular: Hypertension, High cholesterol : Benign prostate hypertrophy - Past Surgical History Past Surgical History: Yes General: Cholecystectomy Cardiovascular: Valve replacement - Present Medications Home Medications: Ambulatory Orders Medication Instructions Recorded Confirmed Aspirin [Roxana Chewable] 81 mg PO DAILY 04/20/14 04/20/14 Digoxin [Digox] 250 mcg PO DAILY 04/20/14 04/20/14 Finasteride 5 mg PO DAILY 04/20/14 04/20/14 Metoprolol Succinate 100 mg PO BID 04/20/14 04/20/14 Simvastatin [Zocor] 40 mg PO DAILY 04/20/14 04/20/14 Tamsulosin [Flomax] 0.4 mg PO DAILY 04/20/14 04/20/14 Warfarin [Coumadin] 5 mg PO DAILY 04/20/14 04/20/14 - Allergies Allergies/Adverse Reactions: Allergies Allergy/AdvReac Type Severity Reaction Status Date / Time No Known Drug Allergies Allergy Verified 04/14/19 17:04 - Social History Does the pt smoke?: Yes Smoking Status: Current every day smoker Does the pt drink ETOH?: No Does the pt have substance abuse?: No - Immunizations Immunizations are current?: Yes - POLST Patient has POLST: No PD ED PE NORMAL - Vitals Vital signs reviewed: Yes - General General: Alert and oriented X 3, No acute distress, Well developed/nourished - Derm Derm: Normal color, Warm and dry - Extremities Extremities: Other (dorsolateral proximal right foot with swelling and bruising color and tenseness to palpation c/w hematoma. Not impinging neurovascular. ) - Neuro Neuro: No motor deficit, No sensory deficit Results - Vitals Vitals: Oxygen O2 Source Room air - Labs Labs: Laboratory Tests 06/22/21 11:33 INR (Fingerstick) 3.2 H - Rads (name of study) right foot Radiology: Prelim report reviewed (no fractures), See rad report PD MEDICAL DECISION MAKING - ED course Complexity details: reviewed results (no fractures. ), considered differential (contusion with tense hematoma from last night. Normal sensation and cap refill. ), d/w patient Departure - Departure Disposition: 01 Home, Self Care Clinical Impression: Hematoma of right foot Foot contusion Qualifiers: Encounter type: initial encounter Laterality: right Qualified Code(s): S90.31XA - Contusion of right foot, initial encounter Condition: Stable Record reviewed to determine appropriate education?: Yes Instructions: ED Hematoma Follow-Up: Manny Mota MD [Primary Care Provider] - Comments: There are no fractures on x-ray. Elevate Kan wrap in ice to the foot periodically through the day to help reduce swelling. Crutches as needed for partial to no weightbearing for comfort. Tylenol 500 to 650 mg 3-4 times a day for the next several days for pain. I would anticipate the pressure of this to decrease over the next several days though the bruising itself will let likely take a week or 2. Recheck if the tightness and pain have not decreased over the next 3 to 5 days. Discharge Date/Time: 06/22/21 11:59
[2021-06-22] MEDS ORDERED: ACETAMINOPHEN 325 MG TABLET PO STA (11:16)
[2021-06-22 11:26] VITALS: BP 147/65
== END 2021-06-22 11:59 | disposition home or self-care (01) ==
LOC: ED 09:46
DX: S90.31XA Contusion of right foot, initial encounter (principal); W22.03XA Walked into furniture, initial encounter; Y92.009 Unspecified place in unspecified non-institutional (private) residence as the place of occurrence of the external cause; I10 Essential (primary) hypertension; Z79.01 Long term (current) use of anticoagulants; Z95.2 Presence of prosthetic heart valve; Z79.82 Long term (current) use of aspirin; F17.200 Nicotine dependence, unspecified, uncomplicated
CPT/HCPCS: 36416; 73610; 73630; 85610; 99282; 99284; A9270

== ENCOUNTER 2021-06-25 08:00 | Outpatient (CLI) | payer MEDICARE, OTHER | END 2021-06-25 23:59 | disposition home or self-care (01) | LOC: LAB.S 08:00 | PROVIDERS: ATTEND Emergency Medicine | DX: I48.21 Permanent atrial fibrillation (principal) | CPT/HCPCS: 36416; 85610 ==

== ENCOUNTER 2021-07-16 10:23 | Outpatient (CLI) | payer MEDICARE, OTHER ==
--- NOTE | 2021-07-16 13:42 | XRAY Report ---
PROCEDURE: Foot 3 View RT INDICATIONS: CONTUSION OF RIGHT FOOT, INITIAL ENCOUNTER TECHNIQUE: 3 views of the foot were acquired. COMPARISON: 06/22/2021 FINDINGS: Bones: No fractures identified. No dislocations. No osseous erosion or periosteal reaction. No suspi cious bony lesions. Soft tissues: No tibiotalar joint effusion. Achilles tendon appears normal. There is heterogeneity of the dorsal and lateral soft tissues. IMPRESSION: No acute osseous abnormality identified. If clinically indicated MRI or CT or three-phase bone scan could be considered for further evaluation . Reviewed by: Bucky Leon MD on 07/16/2021 1:41 PM PST Approved by: Bucky Leon MD on 07/16/2021 1:41 PM PST Station ID: [id number]
== END 2021-07-16 10:24 | disposition home or self-care (01) ==
LOC: DI 10:23
PROVIDERS: ATTEND Nurse Practitioner
DX: S90.31XA Contusion of right foot, initial encounter (principal); I73.9 Peripheral vascular disease, unspecified

== ENCOUNTER 2021-07-25 14:45 | Outpatient (CLI) | payer MEDICARE, OTHER ==
--- NOTE | 2021-07-25 19:15 | Ultrasound Report ---
PROCEDURE: Duplex Lwr Ext Arterial Bilat INDICATIONS: CONTUSION RIGHT FOOT TECHNIQUE: Color and pulse Doppler interrogation was performed of both lower extremity arterial systems, with im age documentation. COMPARISON: None FINDINGS: Right lower extremity: Common femoral artery: 147 cm/sec, with triphasic flow. Deep femoral artery: 83 cm/sec, with triphasic flow. Proximal superficial femoral artery: 115 cm/sec, with triphasic flow. Mid superficial femoral artery: 126 cm/sec, with triphasic flow. Distal superficial femoral artery: 96 cm/sec, with triphasic flow. Popliteal artery: 91 cm/sec, with triphasic flow. Posterior tibial artery: 117 cm/sec, with triphasic flow. Anterior tibial artery/dorsalis pedis: 134/120 cm/sec, with triphasic/triphasic flow. Stinson-scale imaging description: Minimal scattered plaque. Left lower extremity: Common femoral artery: 166 cm/sec, with triphasic flow. Deep femoral artery: 88 cm/sec, with triphasic flow. Proximal superficial femoral artery: 144 cm/sec, with triphasic flow. Mid superficial femoral artery: 90 cm/sec, with triphasic flow. Distal superficial femoral artery: 112 cm/sec, with triphasic flow. Popliteal artery: 93 cm/sec, with triphasic flow. Posterior tibial artery: 108 cm/sec, with triphasic flow. Anterior tibial artery/dorsalis pedis: 82/84 cm/sec, with triphasic/triphasic flow. Stinson-scale imaging description: Minimal scattered plaque. IMPRESSION: No hemodynamically significant stenosis, vascular occlusion or aneurysmal dilation. Reviewed by: Chanell Becker MD on 07/25/2021 7:13 PM PST Approved by: Chanell Becker MD on 07/25/2021 7:13 PM PST Station ID: [id number]
== END 2021-07-25 14:46 | disposition home or self-care (01) ==
LOC: DI 14:45
PROVIDERS: ATTEND Nurse Practitioner
DX: S90.31XA Contusion of right foot, initial encounter (principal); I73.9 Peripheral vascular disease, unspecified
CPT/HCPCS: 93925

== ENCOUNTER 2021-07-26 10:32 | Outpatient (CLI) | payer MEDICARE, OTHER | END 2021-07-26 10:33 | disposition home or self-care (01) | LOC: LAB.S 10:32 | PROVIDERS: ATTEND Family Medicine | DX: Z79.01 Long term (current) use of anticoagulants (principal) | CPT/HCPCS: 36416; 85610 ==

== ENCOUNTER 2021-08-23 10:12 | Outpatient (CLI) | payer MEDICARE, OTHER | END 2021-08-23 10:13 | disposition home or self-care (01) | LOC: LAB.S 10:12 | PROVIDERS: ATTEND Family Medicine | DX: Z79.01 Long term (current) use of anticoagulants (principal) | CPT/HCPCS: 36416; 85610 ==

== ENCOUNTER 2021-10-01 12:31 | Outpatient (CLI) | payer MEDICARE, OTHER | END 2021-10-01 12:32 | disposition home or self-care (01) | LOC: LAB.S 12:31 | PROVIDERS: ATTEND Family Medicine | DX: Z79.01 Long term (current) use of anticoagulants (principal) | CPT/HCPCS: 36416; 85610 ==

== ENCOUNTER 2021-11-05 10:07 | Outpatient (CLI) | payer MEDICARE, OTHER | END 2021-11-05 10:08 | disposition home or self-care (01) | LOC: LAB.S 10:07 | PROVIDERS: ATTEND Family Medicine | DX: Z79.01 Long term (current) use of anticoagulants (principal) | CPT/HCPCS: 36416; 85610 ==

== ENCOUNTER 2021-11-19 10:08 | Outpatient (CLI) | payer MEDICARE, OTHER | END 2021-11-19 10:09 | disposition home or self-care (01) | LOC: LAB.S 10:08 | PROVIDERS: ATTEND Internal Medicine | DX: Z79.01 Long term (current) use of anticoagulants (principal) | CPT/HCPCS: 36416; 85610 ==

== ENCOUNTER 2021-12-24 07:59 | Outpatient (CLI) | payer MEDICARE, OTHER ==
[2021-12-24 14:35] LABS: CALCIUM 9.3 mg/dL (8.5-10.3); CREATININE 0.7 mg/dL (0.6-1.2); POTASSIUM 4.1 mmol/L (3.5-5.0)
== END 2021-12-24 08:00 | disposition home or self-care (01) ==
LOC: LAB.S 07:59
PROVIDERS: ATTEND Internal Medicine
DX: Z79.01 Long term (current) use of anticoagulants (principal); I42.8 Other cardiomyopathies; R97.20 Elevated prostate specific antigen [PSA]
CPT/HCPCS: 36415; 80048; 84153; 85610

== ENCOUNTER 2022-01-27 09:57 | Outpatient (CLI) | payer MEDICARE, OTHER | END 2022-01-27 09:58 | disposition home or self-care (01) | LOC: LAB.S 09:57 | PROVIDERS: ATTEND Internal Medicine | DX: Z79.01 Long term (current) use of anticoagulants (principal) | CPT/HCPCS: 36416; 85610 ==

== ENCOUNTER 2022-03-25 09:34 | Outpatient (CLI) | payer MEDICARE, OTHER | END 2022-03-25 09:35 | disposition home or self-care (01) | LOC: LAB.S 09:34 | PROVIDERS: ATTEND Family Medicine | DX: Z79.01 Long term (current) use of anticoagulants (principal) | CPT/HCPCS: 36416; 85610 ==

== ENCOUNTER 2022-04-22 09:35 | Outpatient (CLI) | payer MEDICARE, OTHER | END 2022-04-22 09:36 | disposition home or self-care (01) | LOC: LAB.S 09:35 | PROVIDERS: ATTEND Family Medicine | DX: Z79.01 Long term (current) use of anticoagulants (principal) | CPT/HCPCS: 36416; 85610 ==

== ENCOUNTER 2022-05-20 09:33 | Outpatient (CLI) | payer MEDICARE, OTHER | END 2022-05-20 09:34 | disposition home or self-care (01) | LOC: LAB.S 09:33 | PROVIDERS: ATTEND Internal Medicine | DX: Z79.01 Long term (current) use of anticoagulants (principal) | CPT/HCPCS: 36416; 85610 ==

== ENCOUNTER 2022-06-17 13:57 | Outpatient (CLI) | payer MEDICARE, OTHER | END 2022-06-17 13:58 | disposition home or self-care (01) | LOC: LAB.S 13:57 | PROVIDERS: ATTEND Internal Medicine | DX: Z79.01 Long term (current) use of anticoagulants (principal) | CPT/HCPCS: 36416; 85610 ==